=== PATIENT | male | born 1980 | race Caucasian/White ===

== ENCOUNTER 2019-01-09 23:04 | Emergency (ER) | payer OTHER, SELFPAY ==
[2019-01-09 23:04] VITALS: BP 131/95; PULSE 101; RESP 20; TEMP 36.9; O2SAT 98; BMI 26.2
--- NOTE | 2019-01-09 23:13 | DI.RAD.S_ITS ---
PROCEDURE: XR CHEST 1V INDICATIONS: coughing TECHNIQUE: One view of the chest was acquired. COMPARISON: None. FINDINGS: Surgical changes and devices: None. Lungs and pleura: Lungs are clear. No pleural effusions or pneumothorax. Mediastinum: Mediastinal contours appear normal. Heart size is normal. Bones and chest wall: No suspicious bony lesions. Overlying soft tissues appear unremarkable. IMPRESSION: No No acute cardiopulmonary findings. Dictated by: Angelita Minaya M.D. on 01/10/2019 at 7:00 Approved by: Angelita Minaya M.D. on 01/10/2019 at 7:02
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
[2019-01-09 23:18] VITALS: PULSE 94; RESP 28; O2SAT 100
[2019-01-09] MEDS: SODIUM CHLORIDE 0.9% 1,000 ML 1000 ML IV (23:18)
[2019-01-09] MEDS: methylPREDNISolone 125 MG/2 ML VIAL IV (23:18)
[2019-01-09] MEDS: ALBUTEROL 2.5 MG/3 ML NEB (ADULT) 5 MG INH (23:19)
[2019-01-09 23:30] VITALS: BP 140/74; PULSE 103; RESP 21; O2SAT 97
[2019-01-09 23:33] LABS: Add Manual Diff / Slide Review NO; Basophils Absolute Auto 100 /uL (0-100); Basophils Percent Auto 0.8 % (0-2); Eosinophils Absolute Auto 400 /uL (0-450); Eosinophils Percent Auto 3.8 % (2-4); Hematocrit 44.6 % (41-53); Hemoglobin 15.1 g/dL (13.5-17.5); Lymphocytes Absolute Auto 4100 /uL (1100-4500); Lymphocytes Percent Auto 35.5 % (25-40); Mean Corpuscular HGB Conc 33.9 % (30-36); Mean Corpuscular Hemoglobin 29.3 PG (26-34); Mean Corpuscular Volume 86.5 fL (80-100); Monocytes Absolute Auto 1000 /uL (0-900); Monocytes Percent Auto 9.1 % (3-14); Neutrophils Absolute Auto 5800 /uL (1500-7000); Neutrophils Percent Auto 50.8 % (50-75); Platelet Count 469 X10^3/uL (150-400); Red Blood Cell Count 5.16 X10^6/uL (4.5-5.9); Red Cell Distribution Width 13.6 % (11.6-14.8); White Blood Cell Count 11.5 X10^3/uL (4.5-11.0)
--- NOTE | 2019-01-09 23:37 | DI.CT.S_ITS ---
PROCEDURE: CT SOFT TISSUE NECK W CON INDICATIONS: feels narrowing in neck difficulty to breathe TECHNIQUE: After the administration of intravenous contrast, 3.0 mm axial sections acquired from the sella to the aortic arch. Additional oblique axial 3.0 mm sections acquired through the pharynx. 3 mm thick coronal and sagittal reformats were generated. For radiation dose reduction, the following was used: automated exposure control. COMPARISON: None. FINDINGS: Image quality: Excellent. Lymph nodes: No enlarged lymph nodes seen throughout the neck. Vessels: Visualized vasculature appears patent. Neck spaces: The oropharynx, nasopharynx, and pharynx demonstrate no mucosal lesions. The vocal cords, false vocal cords, pyriform sinuses, epiglottis, vallecula, and tongue base all appear normal. Extramucosal spaces appear unremarkable. Glands: The parotid and submandibular glands appear normal. Thyroid gland is normal. Miscellaneous: Visualized brain and orbits appear normal. Lung apices appear clear. Partially 6 mm nodule noted in the superior segment of the right lower lobe noted. Superficial soft tissues appear normal. Bones: No suspicious bony lesions. Mucosal thickening is noted in the left maxillary sinus and scattered throughout the ethmoid air cells. mastoids appear unremarkable. IMPRESSION: 1. No mucosal based mass. 2. No airway narrowing. 3. No lymphadenopathy based on size criteria. 4. No abscess or soft tissue inflammation. 5. Left maxillary sinus and bilateral ethmoid air cell mucosal thickening. Dictated by: Anay Campbell MD, PhD on 01/10/2019 at 7:53 Approved by: Anay Campbell MD, PhD on 01/10/2019 at 7:58
[2019-01-09 23:40] LABS: Alanine Aminotransferase 25 IU/L (21-72); Albumin 4.4 g/dL (3.5-5.0); Albumin Globulin Ratio 1.2 (1.0-2.8); Alkaline Phosphatase 75 U/L (38-126); Aspartate Aminotransferase 20 IU/L (17-59); Bilirubin Total 0.3 mg/dL (0.2-1.3); Blood Urea Nitrogen 21 mg/dL (9-20); Carbon Dioxide 20 mmol/L (22-32); Chloride 106 mmol/L (98-107); Estimated Glomerular Filt Rate > 60.0 mL/min (>60); Globulin 3.7 g/dL (1.7-4.1); Glucose 120 mg/dL (70-100); HEMOLYSIS 16 (0-50); Potassium 3.9 mmol/L (3.4-5.1); Sodium 141 mmol/L (137-145); Total Protein 8.1 g/dL (6.3-8.2)
[2019-01-09 23:41] LABS: Creatine Kinase 98 U/L (55-170); Magnesium 2.1 mg/dL (1.6-2.3)
[2019-01-09 23:52] LABS: Troponin I < 0.012 ng/mL (0.01-0.034)
[2019-01-09 23:53] LABS: B Type Natriuretic Peptide < 100 (<100)
[2019-01-10] LABS: Procalcitonin < 0.05 ng/mL (<0.5)
[2019-01-10 00:30] VITALS: BP 126/84; PULSE 102; RESP 19; O2SAT 94
[2019-01-10] MEDS: ALBUTEROL HFA PREPACK 1 BOX MISC (01:15)
== END 2019-01-10 01:20 | disposition home or self-care (01) ==
PROVIDERS: Emergency Provider Emergency Medicine
DX: R06.00 Dyspnea, unspecified (principal); J45.41 Moderate persistent asthma with (acute) exacerbation
CPT/HCPCS: 36591; 70491; 71045; 80053; 82550; 83735; 83880; 84145; 84484; 85025; 93005; 94640; 96361; 96374; 99283; 99285; J2930; J7613; Q9967